=== PATIENT | female | born 1995 | race African-American/Black ===

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

== ENCOUNTER → 2017-06-30 | Outpatient (CLI) | payer OTHER ==
--- NOTE | 2017-06-30 14:25 | RADIOLOGY REPORT (SQ) ---
EXAM DESCRIPTION: MRI LT LOWER JOINT WITHOUT COMPLETED DATE/TIME: 06/30/2017 11:43 am REASON FOR STUDY: PAIN, SWELLING LEFT ANKLE R22.42 LOCALIZED SWELLING, MASS AND LUMP, LEFT LOWER L IMB M25.572 PAIN IN LEFT ANKLE AND JOINTS OF LEFT FOOT COMPARISON: 2017 radiographs. TECHNIQUE: Left Ankle images acquired and stored on PACS. Multiplanar images include fat sensitive s equences as T1, fluid sensitive sequences as FST2/STIR, cartilage sensitive sequences as FSPD, and gr adient echo sequences. LIMITATIONS: None. FINDINGS: BONE MARROW: Subtle edema and tiny subchondral cysts in the anterior process of the calcan eus. No clear coalition here. Marrow signal otherwise looks relatively normal. EFFUSIONS: No subtalar or tibiotalar effusions. No loose bodies. OSSEOUS ARTICULATIONS: Generally maintained. No significant osteophytes. Minimal subchondral cyst i n medial cuneiform with slight narrowing of the articulation with the adjacent metatarsal. Suspected to be degenerative in etiology. TALAR DOME AND TIBIAL PLAFOND: Normal cartilage. No osteochondral defect. ACHILLES TENDON: Intact without partial or full-thickness tear. No adjacent bursal fluid or edema. TIBIALIS ANTERIOR TENDON: Intact without edema at the 1st MT attachment. TIBIALIS POSTERIOR TENDON: Mild fluid along the tendon, suspect tenosynovitis. Otherwise intact. FLEXOR HALLUCIS LONGUS AND FLEXOR DIGITORUM TENDONS: Normal morphology and no tendon sheath fluid. No edema of the os trigonum. PERONEUS LONGUS AND BREVIS TENDON: Normal morphology and no tendon sheath fluid. No subluxation. ATFL, CFL, PTFL: Intact. No thickening or signal alteration. No amador-ligamentous fluid. DELTOID LIGAMENT: Visualized components intact. TARSAL TUNNEL: No masses. No muscle atrophy. SINUS TARSI: No fluid. No reactive marrow edema or erosions. PLANTAR FASCIA: No signal alteration or tear. ADJACENT SOFT TISSUES: Mild medial and lateral nonspecific subcutaneous edema. No drainable collecti ons or mass evident. OTHER: No other significant finding. IMPRESSION: 1. Minimal great toe tarsometatarsal arthropathy is suggested. 2. Signal changes in t he anterior process calcaneus, subtle. No solid bridging coalition with the adjacent tarsals. Other joints are maintained. 3. Mild tibialis posterior tenosynovitis. 4. Minimal nonspecific medial an d lateral subcutaneous edema about the ankle. TECHNICAL DOCUMENTATION: JOB ID: [id number] [employer] [facility]- All Rights Reserved Reading location - IP/workstation name: [email or web address]
== END ==
LOC: RAD 10:33
PROVIDERS: ATTEND Student in an Organized Health Care Education/Training Program
DX: M25.572 Pain in left ankle and joints of left foot (principal); R22.42 Localized swelling, mass and lump, left lower limb

== ENCOUNTER 2018-05-28 20:35 | Emergency (ER) | payer OTHER ==
[2018-05-28] MEDS ORDERED: ONDANSETRON HCL INJ/PF 4 MG/2 ML SDV IV ONE (21:22)
[2018-05-28] MEDS ORDERED: NORMAL SALINE 1000 ML 1,000 ML IV ONE (21:22)
--- NOTE | 2018-05-28 21:41 | ER Document Report ---
ED GI/ - General Chief Complaint: Abdominal Pain Stated Complaint: STOMACH PAIN Time Seen by Provider: 05/28/18 21:13 Primary Care Provider: KEYUR PERDOMO DO [Primary Care Provider] - Follow up as needed Notes: Patient is a 22-year-old female that comes to the emergency department for chief complaint of abdominal pain for 1 week. She states that she also has frequent nausea, she at times has worse nausea after eating but does not have increased pain after eating. Pain is both upper and lower. She states she is also been constipated, she has taken MiraLAX about 2 days ago and she did have a couple loraine wel movements, she states they were not very hard and they were nonbloody. She states she has felt like she has been running fevers as well but these were not checked. She is on control, had a menstrual cycle less than a week ago. She denies any surgeries or medications otherwise. TRAVEL OUTSIDE OF THE [place] IN LAST 30 DAYS: No - Related Data Allergies/Adverse Reactions: No Known Allergies Allergy (Unverified 05/28/18 21:02) Past Medical History - General Information source: Patient, Parent - mother - Social History Smoking Status: Never Smoker Frequency of alcohol use: None Drug Abuse: None Lives with: Family Family History: Reviewed & Not Pertinent Patient has suicidal ideation: No Patient has homicidal ideation: No - Medical History Medical History: Negative Renal/ Medical History: Denies: Hx Peritoneal Dialysis Surgical Hx: Negative - Immunizations Immunizations up to date: Yes Hx Diphtheria, Pertussis, Tetanus Vaccination: Yes Review of Systems - Review of Systems Constitutional: No symptoms reported EENT: No symptoms reported Cardiovascular: No symptoms reported Respiratory: No symptoms reported Gastrointestinal: See HPI Genitourinary: No symptoms reported Female Genitourinary: No symptoms reported Musculoskeletal: No symptoms reported Skin: No symptoms reported Hematologic/Lymphatic: No symptoms reported Neurological/Psychological: No symptoms reported Physical Exam - Vital signs Vitals: Temp Pulse Resp BP Pulse Ox 98.3 F 93 16 124/72 99 05/28/18 20:42 05/28/18 20:42 05/28/18 20:42 05/28/18 20:42 05/28/18 20:42 - Notes Notes: GENERAL: Alert, interacts well. No signs of distress HEAD: Normocephalic, atraumatic. EYES: Pupils equal, round, and reactive to light. Extraocular movements intact. ENT: Oral mucosa moist, tongue midline. Oropharynx unremarkable. Airway patent. Nares patent, no nasal septal hematoma, TM's intact. NECK: Full range of motion. Supple. Trachea midline. LUNGS: Clear to auscultation bilaterally, no wheezes, rales, or rhonchi. No respiratory distress. HEART: Regular rate and rhythm. No murmur ABDOMEN: There is minimal generalized tenderness in the upper and lower abdomen. No overt distention. No rigidity or guarding. Slightly loud bowel sounds. GENITOURINARY: Deferred EXTREMITIES: Moves all 4 extremities spontaneously. No edema, normal radial and dorsalis pedis pulses bilaterally. No cyanosis. BACK: no cervical, thoracic, lumbar midline tenderness. No saddle anesthesia, normal distal neurovascular exam. NEUROLOGICAL: Alert and oriented x3. Normal speech. [cranial nerves II through XII grossly intact]. PSYCH: Normal affect, normal mood. SKIN: Warm, dry, normal turgor. No rashes or lesions noted. Course - Re-evaluation Re-evalutation: Patient is well-appearing. She does have some mild generalized upper and lower abdominal tenderness, nonspecific, no guarding or rigidity. Vital signs unremarkable. CBC unremarkable. Chemistry unremarkable. Lipase unremarkable. Urinalysis still pending. Two-view abdomen was ordered because of patient's nonspecific symptoms and vague nausea. This does show large amount of retained stool without air-fluid levels/signs of obstruction or free air. Reevaluated patient. She has been given IV fluids, Toradol, Zofran. No current complaints. Urinalysis showing infection, cultured. Placed on Keflex. I discussed with patient and parent. Because of patient's symptoms, workup, evaluation I suspect patient would benefit from bowel cleanse and also treatment of urinary tract infection, however I have a low very low suspicion of acute abdomen. Discussed treatment, follow-up, and return precautions in detail with patient and mother. Stable at time of discharge. They state understanding and agreement. - Vital Signs Vital signs: Temp Pulse Resp BP Pulse Ox 97.8 F 78 20 100/59 L 98 05/29/18 01:09 05/29/18 01:09 05/29/18 01:09 05/29/18 01:09 05/29/18 01:09 - Laboratory Result Diagrams: 05/28/18 22:40 05/28/18 22:40 Laboratory results interpreted by me: 05/28/18 05/28/18 05/28/18 22:40 22:40 22:40 RDW 15.0 H BUN 5 L Urine Blood SMALL H Urine Urobilinogen 4.0 H Ur Leukocyte Esterase LARGE H Discharge - Discharge Clinical Impression: Nausea Abdominal pain Qualifiers: Abdominal location: generalized Qualified Code(s): R10.84 - Generalized abdomi nal pain Condition: Stable Disposition: HOME, SELF-CARE Additional Instructions: Your lab workup is normal. Your x-ray shows distension of the bowel and stool throughout the colon. We will try to perform a bowel cleanse. I recommend that you drink 1/4 to 1/2 of the magnesium citrate, then if after several hours you do not have bowel movement results drink another 1/4 to half. You may need to take the colace stool softener for the next 2-4 days as well as prescribed. Alternatively you can take Miralax instead of the colace. Take bentyl for cramping, zofran for nausea. Improve your diet - increased vegetables, fruits, fiber, and fluids are very helpful to clear your bowels. If symptoms continue (bloating, nausea, trouble with bowel movements), follow up with the Gastroenterology referral. Your urine appears infected. Take Keflex to completion. Return if you worsen - vomiting, fever, severe worsening pain, or any other concerning symptoms. Prescriptions: Cephalexin Monohydrate [Keflex 500 mg Capsule] 500 mg PO BID 5 Days #10 capsule Dicyclomine HCl [Bentyl 20 mg Tablet] 20 mg PO QID PRN #20 tablet PRN Reason: Docusate Sodium [Colace 100 mg Capsule] 100 mg PO ASDIR PRN #30 capsule PRN Reason: Ondansetron [Zofran Odt 4 mg Tablet] 1 - 2 tab PO Q4H PRN #15 tab.rapdis PRN Reason: For Nausea/Vomiting Forms: Return to Work Referrals: KEYUR PERDOMO, [Primary Care Provider] - Follow up as needed
[2018-05-28 22:57] LABS: ABSOLUTE LYMPHOCYTES (AUTO) 1.5 10^3/uL (0.5-4.7); ABSOLUTE MONOCYTES (AUTO) 0.8 10^3/uL (0.1-1.4); ABSOLUTE NEUT (AUTO) 5.4 10^3/uL (1.7-8.2); BASOPHILS % (AUTO) 0.3 % (0-2); EOSINOPHILS % (AUTO) 0.4 % (0-6); HEMATOCRIT 36.7 % (36.0-47.0); HEMOGLOBIN 12.6 g/dL (12.0-15.5); LYMPHOCYTES % (AUTO) 19.3 % (13-45); MEAN CORPUSCULAR HGB CONC 34.4 g/dL (32.0-36.0); MEAN CORPUSCULAR VOLUME 84 fl (80-97); MONOCYTES % (AUTO) 9.9 % (3-13); PLATELET COUNT 361 10^3/uL (150-450); RED BLOOD COUNT 4.36 10^6/uL (3.72-5.28); SEGMENTED NEUTROPHILS % (AUTO) 70.1 % (42-78); TOTAL CELLS COUNTED % (AUTO) 100 %; WHITE BLOOD COUNT 7.7 10^3/uL (4.0-10.5)
[2018-05-28 23:12] LABS: ALANINE AMINOTRANSFERASE 24 U/L (9-52); ALBUMIN 3.9 g/dL (3.5-5.0); ALKALINE PHOSPHATASE 79 U/L (38-126); ANION GAP 11 (5-19); ASPARTATE AMINO TRANSFERASE 26 U/L (14-36); BILIRUBIN,DIRECT 0.3 mg/dL (0.0-0.4); BILIRUBIN,TOTAL 0.6 mg/dL (0.2-1.3); BLOOD UREA NITROGEN 5 mg/dL (7-20); CALCIUM 9.3 mg/dL (8.4-10.2); CARBON DIOXIDE 25 mmol/L (22-30); CHLORIDE 104 mmol/L (98-107); GLUCOSE 97 mg/dL (75-110); LIPASE 36.8 U/L (23-300); POTASSIUM 3.6 mmol/L (3.6-5.0); SODIUM 140.1 mmol/L (137-145); TOTAL PROTEIN 7.6 g/dL (6.3-8.2)
[2018-05-28] MEDS ORDERED: KETOROLAC TROMETHAMINE INJ/PF 30 MG/1 ML SDV IV ONE (23:24)
--- NOTE | 2018-05-28 23:52 | RADIOLOGY REPORT (SQ) ---
EXAM DESCRIPTION: XR ABDOMEN 2 VIEWS SUPINE ERECT COMPLETED DATE/TME: 05/28/2018 23:24 CLINICAL HISTORY: 22 years, Female, worsening abd swelling, nausea COMPARISON: None. NUMBER OF VIEWS: 2 TECHNIQUE: Supine and erect views of the abdomen LIMITATIONS: None. FINDINGS: Nonspecific, nonobstructive bowel gas pattern. No free air. Abundant stool in the colon. IMPRESSION: Abundant stool in the colon copyright 2010 [employer]- All Rights Reserved
[2018-05-29] MEDS ORDERED: MAGNESIUM CITRATE 296 ML BOTTLE PO ONE (00:06)
[2018-05-29] MEDS ORDERED: ONDANSETRON ODT 4 MG TAB (6 TAB/ER DISP) PO PRN (00:06)
[2018-05-29 00:17] LABS: APPEARANCE,URINE SLIGHTLY-CLOUDY; BILIRUBIN,URINE NEGATIVE (NEGATIVE); COLOR,URINE YELLOW; GLUCOSE, URINE NEGATIVE (NEGATIVE); KETONES,URINE NEGATIVE (NEGATIVE); LEUKOCYTE ESTERASE,URINE LARGE (NEGATIVE); NITRITE,URINE NEGATIVE (NEGATIVE); PROTEIN,URINE NEGATIVE (NEGATIVE); URINE SPECIFIC GRAVITY 1.008
[2018-05-29] MEDS ORDERED: CEPHALEXIN 500 MG CAPSULE PO ONE (00:31)
[2018-05-29 01:10] VITALS: BP 100/59
== END 2018-05-29 01:00 | disposition home or self-care (01) ==
LOC: ER 20:35
DX: K59.00 Constipation, unspecified (principal); N39.0 Urinary tract infection, site not specified; R10.84 Generalized abdominal pain; R11.0 Nausea; Z79.3 Long term (current) use of hormonal contraceptives
CPT/HCPCS: 99284; 96361; 96374; 96375; 36415; 87086; 83690; 85025; 81025; 87088; 80053; 81001; 87186; 74019; J3490; J1885; J2405; J7030

== ENCOUNTER 2018-07-23 10:48 | Emergency (ER) | payer OTHER ==
--- NOTE | 2018-07-23 11:33 | ER Document Report ---
ED Medical Screen (RME) - General Chief Complaint: Abdominal Pain Stated Complaint: ABDOMINAL PAIN Time Seen by Provider: 07/23/18 11:24 Primary Care Provider: KEYUR PERDOMO DO [Primary Care Provider] - Follow up as needed Mode of Arrival: Ambulatory Information source: Patient Notes: Patient presents emergency department with complaints of epigastric abdominal pain. Recently has been treated for UTI. Has been to provide an urgent care and to our facility for same sick. Denies diarrhea but reports vomiting and reports she had a fever the other day. She is currently taking medication for UTI. I have greeted and performed a rapid initial assessment of this patient. A comprehensive ED assessment and evaluation of the patient, analysis of test re sults and completion of the medical decision making process will be conducted by additional ED providers. Dictation of this chart was performed using voice recognition software; therefore, there may be some unintended grammatical errors. TRAVEL OUTSIDE OF THE [place] IN LAST 30 DAYS: No - Related Data Allergies/Adverse Reactions: No Known Allergies Allergy (Verified 07/23/18 11:00) Past Medical History Renal/ Medical History: Denies: Hx Peritoneal Dialysis - Immunizations Immunizations up to date: Yes Hx Diphtheria, Pertussis, Tetanus Vaccination: Yes Physical Exam - Vital signs Vitals: Temp Pulse Resp BP Pulse Ox 98.4 F 75 16 124/65 100 07/23/18 11:08 07/23/18 11:08 07/23/18 11:08 07/23/18 11:08 07/23/18 11:08 Course - Vital Signs Vital signs: Temp Pulse Resp BP Pulse Ox 98.4 F 75 16 124/65 100 07/23/18 11:08 07/23/18 11:08 07/23/18 11:08 07/23/18 11:08 07/23/18 11:08 Doctor's Discharge - Discharge Referrals: KEYUR PERDOMO DO [Primary Care Provider] - Follow up as needed
[2018-07-23 12:04] LABS: ABSOLUTE LYMPHOCYTES (AUTO) 1.4 10^3/uL (0.5-4.7); ABSOLUTE MONOCYTES (AUTO) 0.4 10^3/uL (0.1-1.4); ABSOLUTE NEUT (AUTO) 2.5 10^3/uL (1.7-8.2); BASOPHILS % (AUTO) 0.5 % (0-2); EOSINOPHILS % (AUTO) 0.5 % (0-6); HEMATOCRIT 33.7 % (36.0-47.0); HEMOGLOBIN 11.3 g/dL (12.0-15.5); LYMPHOCYTES % (AUTO) 31.2 % (13-45); MEAN CORPUSCULAR HEMOGLOBIN 28.2 pg (27.0-33.4); MEAN CORPUSCULAR HGB CONC 33.5 g/dL (32.0-36.0); MEAN CORPUSCULAR VOLUME 84 fl (80-97); MONOCYTES % (AUTO) 10.2 % (3-13); PLATELET COUNT 276 10^3/uL (150-450); RED CELL DISTRIBUTION WIDTH 15.2 % (11.5-14.0); SEGMENTED NEUTROPHILS % (AUTO) 57.6 % (42-78); TOTAL CELLS COUNTED % (AUTO) 100 %; WHITE BLOOD COUNT 4.3 10^3/uL (4.0-10.5)
[2018-07-23 12:07] LABS: APPEARANCE,URINE SLIGHTLY-CLOUDY; BILIRUBIN,URINE NEGATIVE (NEGATIVE); GLUCOSE, URINE NEGATIVE (NEGATIVE); KETONES,URINE NEGATIVE (NEGATIVE); LEUKOCYTE ESTERASE,URINE SMALL (NEGATIVE); NITRITE,URINE NEGATIVE (NEGATIVE); PROTEIN,URINE NEGATIVE (NEGATIVE); URINE SPECIFIC GRAVITY 1.017
[2018-07-23 12:10] LABS: COLOR,URINE DARK YELLOW
[2018-07-23 12:22] LABS: ALANINE AMINOTRANSFERASE 27 U/L (9-52); ALBUMIN 3.7 g/dL (3.5-5.0); ALKALINE PHOSPHATASE 63 U/L (38-126); ANION GAP 11 (5-19); ASPARTATE AMINO TRANSFERASE 14 U/L (14-36); BILIRUBIN,DIRECT 0.2 mg/dL (0.0-0.4); BILIRUBIN,TOTAL 0.4 mg/dL (0.2-1.3); BLOOD UREA NITROGEN 9 mg/dL (7-20); CALCIUM 9.4 mg/dL (8.4-10.2); CARBON DIOXIDE 26 mmol/L (22-30); CHLORIDE 104 mmol/L (98-107); GLUCOSE 86 mg/dL (75-110); LIPASE 56.5 U/L (23-300); POTASSIUM 3.5 mmol/L (3.6-5.0); TOTAL PROTEIN 7.1 g/dL (6.3-8.2)
--- NOTE | 2018-07-23 14:19 | ER Document Report ---
ED General - General Chief Complaint: Abdominal Pain Stated Complaint: ABDOMINAL PAIN Time Seen by Provider: 07/23/18 11:24 Primary Care Provider: KEYUR PERDOMO DO [Primary Care Provider] - Follow up as needed Mode of Arrival: Ambulatory Information source: Patient, Parent TRAVEL OUTSIDE OF THE [place] IN LAST 30 DAYS: No - HPI Patient complains to provider of: Epigastric pain, occasional vomiting Onset: Other - 3 to 4 days ago Onset/Duration: Persistent, Waxing and waning Quality of pain: Sharp Severity: Mild Pain Level: 2 Associated symptoms: Nausea, Vomiting. denies: Chills, Diarrhea, Fever Exacerbated by: Denies Relieved by: Denies Similar symptoms previously: No Recently seen / treated by doctor: No Notes: 23-year-old -Greek female presenting with epigastric pain for the past 3 to 4 days. Seen earlier in the week by [facility]. They believe that she had a urinary tract infection. Place her on antibiotics. Lab work was drawn but was not resulted the same day. They told her to return in 48 hours to the ED if she was still have pain. Mom told me over the phone the patient's had a fever which was low-grade off and on. A few episodes of emesis also occurred. - Related Data Allergies/Adverse Reactions: No Known Allergies Allergy (Verified 07/23/18 11:00) Past Medical History - General Information source: Patient - Social History Smoking Status: Never Smoker Family History: Reviewed & Not Pertinent Patient has suicidal ideation: No Patient has homicidal ideation: No Renal/ Medical History: Denies: Hx Peritoneal Dialysis - Immunizations Immunizations up to date: Yes Hx Diphtheria, Pertussis, Tetanus Vaccination: Yes Review of Systems - Review of Systems Notes: Constitutional: No fevers. No chills. EENT: No eye redness. No eye pain. No ear pain. No sore throat. Cardiovascular: No chest pain. No palpitations. Respiratory: No cough. No shortness of breath. No respiratory distress. Gastrointestinal: Positive epigastric pain, nausea, vomiting. Negative for diarrhea Genitourinary: Atraumatic. No lesions. No pain. No discharge. Musculoskeletal: Atraumatic. No swelling. No deformities. Skin: No rash or lesions. Lymphatic: No swollen lymph nodes. Neurologic: No headache. No syncope. Psychiatric: No suicidal or homicidal ideation. Physical Exam - Vital signs Vitals: Temp Pulse Resp BP Pulse Ox 98.4 F 75 16 124/65 100 07/23/18 11:08 07/23/18 11:08 07/23/18 11:08 07/23/18 11:08 07/23/18 11:08 - Notes Notes: General: Well-developed, well-nourished. In no acute distress. Non-toxic appearing. Cardiac: Well-perfused. Regular rate and rhythm. No murmurs, rubs, or gallops. Pulmonary: No respiratory distress. No cyanosis. Bilateral lung fiels are clear to auscultation. Abdominal: Mild epigastric tenderness to palpation. Abdomen is otherwise soft. No guarding or rebound. Bowel sounds are present in all 4 quadrants. No peritoneal signs are present. HEENT: Head is atraumatic. Conjunctivae not reddened. No tearing. PERRL. EOMI. Orbits atraumatic. No periorbital swelling or erythema. Oropharynx is without erythema, swelling, or exudates. Neck: Supple. No adenopathy. No meningismus. Dermatologic: Warm with good turgor. No rash. Atraumatic. Chest: Atraumatic. No chest wall tenderness to palpation. Musculoskeletal: Moves all extremities well. No range of motion deficits. no muscular or joint tenderness. No paraspinal muscle tenderness. no midline spinal tenderness or step-off. Genitourinary: Examination deferred Neurologic: No gross neurologic deficits. Psychiatric: Normal mood. Course - Re-evaluation Re-evalutation: 07/23/18 14:18 By the time the patient was seen, most of her lab work is back and it is unremarkable. No raging urinary infection. Given her history of constipation, I will get a KUB to check for signs of constipation bloating. Also will get an ultrasound of the gallbladder to make sure she does not have any stones or an early cholecystitis. Lipase is normal so not pancreatitis. 07/23/18 15:37 Labs reassuring. X-ray does not show constipation. Gallbladder ultrasound does reveal gallstones without cholecystitis. For now, we will treat patient for gastritis/esophagitis. If this does not resolve her symptoms, I will refer her to general surgery to have them take a look at her gallbladder as a possible cause for the pain. - Vital Signs Vital signs: Temp Pulse Resp BP Pulse Ox 98.4 F 75 16 124/65 100 07/23/18 11:08 07/23/18 11:08 07/23/18 11:08 07/23/18 11:08 07/23/18 11:08 - Laboratory Result Diagrams: 07/23/18 11:43 07/23/18 11:43 Laboratory results interpreted by me: 07/23/18 07/23/18 07/23/18 11:43 11:43 11:43 Hgb 11.3 L Hct 33.7 L RDW 15.2 H Potassium 3.5 L Urine Urobilinogen 2.0 H Ur Leukocyte Esterase SMALL H Discharge - Discharge Clinical Impression: Gastritis Qualifiers: Gastritis type: unspecified gastritis Chronicity: acute Gastritis bleeding: without bleeding Qualified Code(s): K29.00 - Acute gastritis without bleeding Cholelithiasis Qualifiers: Cholelithiasis location: gallbladder Cholecystitis presence: without cholecystitis Biliary obstruction: without biliary obstruction Qualified Code(s): K80.20 - Calculus of gallbladder without cholecystitis without obstruction Condition: Good Disposition: HOME, SELF-CARE Instructions: Abdominal Pain ([facility]), Gastritis ([facility]), Gallbladder Disease ([facility]) Additional Instructions: If this treatment for your abdominal pain does not help, please make an appointment with the surgeon listed in this paperwork. If you get suddenly worse, develop a fever, develop jaundice which is a yellow coloring of your skin or eyes, or intractable nausea and vomiting please return immediately to the emergency department. Prescriptions: Famotidine [Pepcid 20 mg Tablet] 20 mg PO BID #20 tablet Sucralfate [Carafate 1 gm Tablet] 1 gm PO QID #40 tablet Referrals: KEYUR PERDOMO DO [Primary Care Provider] - Follow up as needed [facility] [Provider Group] - Follow up as needed
--- NOTE | 2018-07-23 14:55 | RADIOLOGY REPORT (SQ) ---
EXAM DESCRIPTION: U/S ABDOMEN LIMITED W/O DOP COMPLETED DATE/TIME: 07/23/2018 2:33 pm REASON FOR STUDY: epig. pain, eval for gallstones, cholecystitis COMPARISON: None. TECHNIQUE: Dynamic and static grayscale images acquired of the abdomen and recorded on PACS. Additio nal selected color Doppler and spectral images recorded. LIMITATIONS: None. FINDINGS: PANCREAS: No masses. Visualized pancreatic duct normal caliber. LIVER: No masses. Echotexture normal. LIVER VASCULATURE: Normal directional flow of the main portal vein and hepatic veins. GALLBLADDER: Gallstone(s). No pericholecystic fluid. No wall thickening. ULTRASOUND-DETECTED GREENE'S SIGN: Negative. INTRAHEPATIC DUCTS AND COMMON DUCT: CBD and intrahepatic ducts normal caliber. No filling defects. INFERIOR VENA CAVA: Normal flow. AORTA: No aneurysm. RIGHT KIDNEY: Normal size. Normal echogenicity. No solid or suspicious masses. No hydronephrosis. No calcifications. PERITONEAL AND RIGHT PLEURAL SPACE: No ascites or effusions. OTHER: No other significant findings. IMPRESSION: Cholelithiasis without secondary evidence of acute cholecystitis. TECHNICAL DOCUMENTATION: JOB ID: [id number] [employer]- All Rights Reserved Reading location - IP/workstation name: [email or web address]
--- NOTE | 2018-07-23 14:59 | RADIOLOGY REPORT (SQ) ---
EXAM DESCRIPTION: KUB/ABDOMEN (SINGLE VIEW) COMPLETED DATE/TIME: 07/23/2018 2:44 pm REASON FOR STUDY: upper abd pain hx constipation COMPARISON: None. NUMBER OF VIEWS: One view. TECHNIQUE: Supine radiographic image of the abdomen acquired. LIMITATIONS: None. FINDINGS: BOWEL GAS PATTERN: Normal bowel gas pattern. No dilated loops. CALCIFICATIONS: Punctate radiodensity overlies right upper quadrant, possibly gallstone. SOFT TISSUES: No gross mass or suggestion of organomegaly. HARDWARE: None in the abdomen. BONES: No acute fracture. No worrisome bone lesions. OTHER: No other significant finding. IMPRESSION: No evidence of intestinal obstruction or other acute intra-abdominal process. Punctate radiodensity overlies right upper quadrant, possibly a gallstone. TECHNICAL DOCUMENTATION: JOB ID: [id number] [employer]- All Rights Reserved Reading location - IP/workstation name: [email or web address]
[2018-07-23 16:19] VITALS: BP 106/63
== END 2018-07-23 16:17 | disposition home or self-care (01) ==
LOC: ER 10:48
DX: K80.20 Calculus of gallbladder without cholecystitis without obstruction (principal); K29.00 Acute gastritis without bleeding; R10.9 Unspecified abdominal pain; R10.13 Epigastric pain; R11.2 Nausea with vomiting, unspecified; R50.9 Fever, unspecified
CPT/HCPCS: 36415; 74018; 76705; 80053; 81001; 81025; 83690; 85025; 87086; 87088; 99284

== ENCOUNTER 2019-05-02 04:09 | Emergency (ER) | payer OTHER ==
[2019-05-02] MEDS ORDERED: ONDANSETRON HCL INJ/PF 4 MG/2 ML SDV IV ONE (04:44)
[2019-05-02] MEDS ORDERED: MORPHINE SULFATE 10 MG/ML INJ IV ONE (04:44)
[2019-05-02] MEDS ORDERED: NORMAL SALINE 1000 ML 1,000 ML IV ONE (04:45)
--- NOTE | 2019-05-02 04:46 | ER Document Report ---
ED GI/ - General Chief Complaint: Nausea/Vomiting Stated Complaint: ABDOMINAL PAIN/VOMITING Time Seen by Provider: 05/02/19 04:40 Primary Care Provider: KEYUR PERDOMO DO [NO LOCAL MD] - Follow up as needed Notes: Patient is a 23-year-old female that comes to the emergency department for chief complaint of right upper quadrant pain and vomiting. She states symptoms started at 1 PM yesterday, she states she has vomited 15 times since that time. She denies hematemesis, she has had a normal-looking bowel movement in the past 24 hours. She denies fever. She denies any other locations of pain. She state s she was told once previously that she had gallstones but she has not had a cholecystectomy or any surgeries. She takes no medications other than control. She denies alcohol, smoking, recreational drugs. TRAVEL OUTSIDE OF THE [place] IN LAST 30 DAYS: No - Related Data Allergies/Adverse Reactions: No Known Allergies Allergy (Verified 07/23/18 11:00) Home Medications: BCP Past Medical History - General Information source: Patient - Social History Smoking Status: Never Smoker Frequency of alcohol use: None Drug Abuse: None Lives with: Family Family History: Reviewed & Not Pertinent Patient has suicidal ideation: No Patient has homicidal ideation: No Renal/ Medical History: Denies: Hx Peritoneal Dialysis Surgical Hx: Negative - Immunizations Immunizations up to date: Yes Hx Diphtheria, Pertussis, Tetanus Vaccination: Yes Review of Systems - Review of Systems Constitutional: No symptoms reported EENT: No symptoms reported Cardiovascular: No symptoms reported Respiratory: No symptoms reported Gastrointestinal: See HPI Genitourinary: No symptoms reported Female Genitourinary: No symptoms reported Musculoskeletal: No symptoms reported Skin: No symptoms reported Hematologic/Lymphatic: No symptoms reported Neurological/Psychological: No symptoms reported Physical Exam - Vital signs Vitals: Temp Pulse Resp BP Pulse Ox 98.1 F 80 14 123/66 100 05/02/19 04:13 05/02/19 04:13 05/02/19 04:13 05/02/19 04:13 05/02/19 04:13 - Notes Notes: GENERAL: Patient appears slightly uncomfortable, holding an emesis bag, sitting over the side of the bed HEAD: Normocephalic, atraumatic. EYES: Pupils equal, round, and reactive to light. Extraocular movements intact. ENT: Oral mucosa moist, tongue midline. Oropharynx unremarkable. Airway patent. LUNGS: Clear to auscultation bilaterally, no wheezes, rales, or rhonchi. No respiratory distress. HEART: Regular rate and rhythm. No murmur ABDOMEN: There is tenderness in the right upper quadrant and epigastric area although this is not severe. Remaining abdomen is unremarkable. Bowel sounds present. GENITOURINARY: Deferred EXTREMITIES: Moves all 4 extremities spontaneously. No edema, normal radial and dorsalis pedis pulses bilaterally. No cyanosis. BACK: no cervical, thoracic, lumbar midline tenderness. No saddle anesthesia, normal distal neurovascular exam. NEUROLOGICAL: Alert and oriented x3. Normal speech. Cranial nerves II through XII grossly intact. SKIN: Warm, dry, normal turgor. No rashes or lesions noted. Course - Re-evaluation Re-evalutation: Patient states she does feel a lot better now than she did before with pain almost resolving. She does have some tenderness in the upper abdomen but she is not guarding. She is still nauseated. Work-up pending. CBC unremarkable, chemistry unremarkable, lipase unremarkable. test negative. Urinalysis with no concerning findings. Right upper quadrant ultrasound showing cholelithiasis without pericholecystic fluid, wall thickening, or obstruction. 05/02/19 05:53 Patient reevaluated, she states that she initially felt much better but now the pain is starting to return, she is quietly crying. Apparently her IV infiltrated and she was not properly given her pain medication earlier even though she was feeling better earlier than that she did now. She was given the pain medication now. She will be reevaluated. On reevaluation patient states she feels better but she wants to go home. I discussed with patient and her mother at length. I recommended that I consult surgery and she have a cholecystectomy because of her recurrent symptoms since last year, her vomiting, her recurrent severe pain. I also discussed how this could certainly progressed to cholecystitis based on how her symptoms have been since yesterday, I also discussed how this could develop into choled ocholithiasis and a variety of complications. Patient and mother state understanding, however they state they already have an appointment with [facility] up and they would prefer to be discharged for this follow-up instead of admitted for surgery here. Discussed that if she can tolerate p.o. w ithout any difficulty she can be discharged with return precautions but I strongly recommended close follow-up and I discussed close return precautions in detail. Patient and mother state understanding and agreement with plan. 05/02/19 07:08 Patient has tolerated p.o. and is doing well. She was discharged with her prescriptions and instructions for follow-up and return. They state appreciation and agreement. - Vital Signs Vital signs: Temp Pulse Resp BP Pulse Ox 98.1 F 87 18 109/64 100 05/02/19 06:22 05/02/19 06:22 05/02/19 06:22 05/02/19 06:22 05/02/19 06:22 - Laboratory Result Diagrams: 05/02/19 04:54 05/02/19 04:54 Laboratory results interpreted by me: 05/02/19 05/02/19 04:54 04:54 RDW 15.2 H Lymph % (Auto) 9.2 L Seg Neutrophils % 85.2 H Chloride 109 H Glucose 118 H Alkaline Phosphatase 35 L Discharge - Discharge Clinical Impression: Right upper quadrant pain Cholelithiasis Qualifiers: Cholelithiasis location: gallbladder Cholecystitis presence: without cholecy stitis Biliary obstruction: without biliary obstruction Qualified Code(s): K80.20 - Calculus of gallbladder without cholecystitis without obstruction Vomiting Qualifiers: Vomiting type: unspecified Vomiting Intractability: non-intractable Nausea presence: with nausea Qualified Code(s): R11.2 - Nausea with vomiting, unspec ified Condition: Stable Disposition: HOME, SELF-CARE Additional Instructions: Your work-up indicates pain from gallstones. I strongly recommend that you follow-up with your surgical clinic appointment, if not follow-up with the listed referral, call for your appointment. Avoid any fatty, fried, or greasy foods as this will be much more likely to trigger painful symptoms. You have been provided with pain and nausea medications to take if needed, however if pain becomes severe, constant, you develop vomiting, you develop fever, or he worsens in any other way please return to the emergency department. Prescriptions: Ketorolac Tromethamine [Toradol 10 mg Tablet] 10 mg PO Q8HP PRN #24 tablet PRN Reason: Hydrocodone/Acetaminophen [[place] 5-325 mg Tablet] 1 - 2 tab PO ASDIR PRN #12 tablet PRN Reason: Ondansetron [Zofran Odt 4 mg Tablet] 1 - 2 tab PO Q4H PRN #20 tab.rapdis PRN Reason: For Nausea/Vomiting Referrals: [facility] [Provider Group] - 05/04/19
[2019-05-02 04:52] LABS: APPEARANCE,URINE SLIGHTLY-CLOUDY; BILIRUBIN,URINE NEGATIVE (NEGATIVE); COLOR,URINE YELLOW; GLUCOSE, URINE NEGATIVE (NEGATIVE); KETONES,URINE NEGATIVE (NEGATIVE); LEUKOCYTE ESTERASE,URINE NEGATIVE (NEGATIVE); NITRITE,URINE NEGATIVE (NEGATIVE); PROTEIN,URINE NEGATIVE (NEGATIVE); URINE SPECIFIC GRAVITY 1.018; UROBILINOGEN,URINE NEGATIVE mg/dL (<2.0)
[2019-05-02 05:12] LABS: ABSOLUTE LYMPHOCYTES (AUTO) 0.6 10^3/uL (0.5-4.7); ABSOLUTE MONOCYTES (AUTO) 0.3 10^3/uL (0.1-1.4); ABSOLUTE NEUT (AUTO) 5.2 10^3/uL (1.7-8.2); BASOPHILS % (AUTO) 0.4 % (0-2); EOSINOPHILS % (AUTO) 0.1 % (0-6); HEMATOCRIT 39.4 % (36.0-47.0); HEMOGLOBIN 13.3 g/dL (12.0-15.5); LYMPHOCYTES % (AUTO) 9.2 % (13-45); MEAN CORPUSCULAR HEMOGLOBIN 29.4 pg (27.0-33.4); MEAN CORPUSCULAR HGB CONC 33.8 g/dL (32.0-36.0); MEAN CORPUSCULAR VOLUME 87 fl (80-97); MONOCYTES % (AUTO) 5.1 % (3-13); PLATELET COUNT 212 10^3/uL (150-450); RED BLOOD COUNT 4.53 10^6/uL (3.72-5.28); RED CELL DISTRIBUTION WIDTH 15.2 % (11.5-14.0); SEGMENTED NEUTROPHILS % (AUTO) 85.2 % (42-78); TOTAL CELLS COUNTED % (AUTO) 100 %; WHITE BLOOD COUNT 6.1 10^3/uL (4.0-10.5)
--- NOTE | 2019-05-02 05:37 | RADIOLOGY REPORT (SQ) ---
Ultrasound of the right upper quadrant of the abdomen: 05/02/2019 4:35 AM MATHEMATICS DEPARTMENT CHAIR Technique: Multiple grayscale color Doppler images of the right upper quadrant of the abdomen were obtained. Comparison: None available History: 23-year old patient with right upper quadrant abdominal pain, vomiting. Findings: The visualized portions of the hepatic parenchyma appear normal. There is no evidence to suggest intra or extrahepatic ductal dilatation. There is normal directional flow seen within the main portal vein. Cholelithiasis is seen with no evidence of gallbladder wall thickening or pericholecystic fluid. The common duct measures 1-2 mm. The right kidney measures up to 9.4 cm in length. The right kidney demonstrates normal cortical echogenicity with no evidence to suggest hydronephrosis. The visualized portions of the IVC, abdominal aorta, and pancreatic head appear normal. No free intraperitoneal fluid is seen. Impression: Cholelithiasis is seen. The common duct is within normal limits of size.
[2019-05-02 05:41] LABS: ALBUMIN 4.1 g/dL (3.5-5.0); ALKALINE PHOSPHATASE 35 U/L (38-126); ANION GAP 7 (5-19); ASPARTATE AMINO TRANSFERASE 24 U/L (14-36); BILIRUBIN,DIRECT 0.2 mg/dL (0.0-0.4); BILIRUBIN,TOTAL 0.8 mg/dL (0.2-1.3); BLOOD UREA NITROGEN 15 mg/dL (7-20); CALCIUM 9.4 mg/dL (8.4-10.2); CARBON DIOXIDE 22 mmol/L (22-30); CHLORIDE 109 mmol/L (98-107); GLUCOSE 118 mg/dL (75-110); POTASSIUM 4.8 mmol/L (3.6-5.0); TOTAL PROTEIN 7.2 g/dL (6.3-8.2)
[2019-05-02] MEDS ORDERED: KETOROLAC TROMETHAMINE INJ/PF 30 MG/1 ML SDV IV ONE (06:18)
[2019-05-02 07:23] VITALS: BP 114/67
== END 2019-05-02 07:23 | disposition home or self-care (01) ==
LOC: ER 04:09
DX: K80.20 Calculus of gallbladder without cholecystitis without obstruction (principal); R10.11 Right upper quadrant pain; R11.2 Nausea with vomiting, unspecified; R10.811 Right upper quadrant abdominal tenderness; R10.816 Epigastric abdominal tenderness; Z79.3 Long term (current) use of hormonal contraceptives
CPT/HCPCS: 99284; 96361; 96374; 96375; 36415; 83690; 85025; 81025; 80053; 81001; 76705; J1885; J2270; J2405; J7030